=== PATIENT | female | born 1950 | race Caucasian/White ===

== ENCOUNTER 2019-04-29 17:57 | Emergency (ER) | payer MEDICARE, OTHER ==
--- NOTE | 2019-04-29 18:17 | EDM.PDOC ---
ED HPI GENERAL MEDICAL PROBLEM - General Chief Complaint: Upper Extremity Injury/Pain Stated Complaint: RT WRIST INJURY Time Seen by Provider: 04/29/19 18:12 Source of Information: Reports: Patient, Family History Limitations: Reports: No Limitations - History of Present Illness INITIAL COMMENTS - FREE TEXT/NARRATIVE: 68-year-old female presents the ED after tripping and falling outside the shop about 2 hours ago. She states she went to close the door and her flip-flop got stuck in a crack causing her to lose her balance and she fell directly onto the concrete. She missed [address] down. Landed hard on her right elbow and wrist. Pain is getting worse over the last 48 hours and especially in the wrist. She denies hitting her head or hurting her neck. She has a minimal superficial abrasion to her right lateral proximal leg. Tetanus toxoid is up-to- date. Onset: Today Onset Date: 04/29/19 Onset Time: 16:15 Duration: Hour(s): Location: Reports: Upper Extremity, Right (Injury to the right elbow and forearm and wrist.) Quality: Reports: Ache, Throbbing Severity: Moderate (6 out of 10) Improves with: Reports: Rest Worsens with: Reports: Movement Context: Reports: Trauma (Lost her balance and fell with direct blow to the right elbow and wrist.). Denies: Activity, Exercise, Sick Contact Associated Symptoms: Reports: No Other Symptoms Treatments [employer]: Reports: Other (see below) (None.) Right Arm Pain Score (Numeric/FACES): 8 - Related Data Allergies Allergy/AdvReac Type Severity Reaction Status Date / Time amoxicillin Allergy Rash Verified 04/29/19 18:06 Home Meds: Home Meds atorvaSTATin [Lipitor] 20 mg PO BEDTIME 04/29/19 [History] oxyCODONE HCl/Acetaminophen [Percocet 5-325 mg Tablet] 1 - 2 each PO Q4H PRN # 12 tablet 04/29/19 [Rx] Past Medical History Cardiovascular History: Reports: High Cholesterol Musculoskeletal History: Reports: Osteoarthritis Social & Family History - Tobacco Use Smoking Status *Q: Never Smoker - Recreational Drug Use Recreational Drug Use: No - Living Situation & Occupation Living situation: Reports: Occupation: Employed Review of Systems - Review of Systems Review Of Systems: See Below Constitutional: Reports: No Symptoms. Denies: Chills, Diaphoresis, Fever, Weakness Eyes: Reports: Glasses Ears: Reports: No Symptoms Nose: Reports: No Symptoms Mouth/Throat: Reports: No Symptoms Respiratory: Reports: No Symptoms Cardiovascular: Reports: No Symptoms GI/Abdominal: Reports: No Symptoms Genitourinary: Reports: No Symptoms Musculoskeletal: Reports: Joint Pain (Occasionally knees hips low back) Skin: Reports: No Symptoms Neurological: Reports: No Symptoms Psychiatric: Reports: No Symptoms ED EXAM, GENERAL - Physical Exam Exam: See Below Exam Limited By: No Limitations General Appearance: Alert, WD/WN, Mild Distress Head: Atraumatic, Normocephalic Neck: Normal Inspection, Supple, Non-Tender, Full Range of Motion. No: Lymphadenopathy (L), Lymphadenopathy (R) Respiratory/Chest: No Respiratory Distress, Lungs Clear, Normal Breath Sounds, No Accessory Muscle Use, Chest Non-Tender, Other Cardiovascular: Normal Peripheral Pulses (Denies any pain on palpation of her ribs or sternum.), Regular Rate, Rhythm, No Edema, No Gallop, No Murmur, No Rub Extremities: Other (Emanation of the left upper extremity shows no injuries. The right lower extremity shows a superficial abrasion to the lateral proximal leg which will not require any treatment other than topical antibiotic therapy. The right forearm shows swelling particularly over the ulnar aspect of the wrist. She has difficulty making a fist. There are contusions and some swelling of the extensor surface of the forearm. There are 3 fairly large abrasions over the right elbow. She has difficulty pronating supinating at the elbow due to pain in the wrist. None of the wounds are deep enough to require sutures. They are abrasions measuring) Neurological: Alert ( 1-2 cm in diameter), Oriented, CN II-XII Intact, Normal Cognition Psychiatric: Other (A mild degree of pain.) Course - Vital Signs Last Recorded V/S: Last Vital Signs Temp 36.6 C 04/29/19 18:03 Pulse 71 04/29/19 18:03 Resp 16 04/29/19 18:03 BP Pulse Ox 100 04/29/19 18:03 - Orders/Labs/Meds Orders: Active Orders 24 hr Category Date Time Status Forearm 2V Rt [CR] Stat Exams 04/29/19 18:13 Taken Wrist Comp Min 3V Rt [CR] Stat Exams 04/29/19 18:12 Taken - Radiology Interpretation Free Text/Narrative:: 68-year-old female presents to the ED with an acute injury to her right elbow right forearm and right wrist from a fall. This occurred about 2 hours ago outside of a shop. She states her flip-flop got stuck in a crack can concrete surfaces causing her to fall directly on her right elbow and wrist. Any other injuries. States the pain in her wrist is getting worse over the last 2 hours and this what made her come to the hospital. Examination shows swelling over the dorsal aspect of the wrist particularly on the ulnar aspect. There are some superficial abrasions to the extensor surface of the forearm and larger abrasions to the elbow particularly over the olecranon process. Difficulty pronating supinating at the elbow. The humerus appears to be intact as does the shoulder. Plan x-ray of the right forearm and wrist 3 view to be done. - Re-Assessments/Exams Free Text/Narrative Re-Assessment/Exam: 04/29/19 19:00: X-rays of the forearm reveals a very subtle undisplaced fracture through the neck of the radial head. There is very slight elevation of the anterior fat pad. The distal radius and ulna and wrist or carpal bones are normal without fracture. No will be a sling for the next 10 days. Her wounds on her elbows was are superficial abrasions will be cleansed and topical antibiotic be placed on them daily until the scab over. Will prescribe Percocet tabs 5/325 mg 12 tablets for pain relief 1 tablet with ibuprofen 600 mg every 6 hours should suffice for pain management. Advised follow-up with her primary care provider or Dr. Olson in 10 days' time Departure - Departure Time of Disposition: 19:12 Disposition: Home, Self-Care 01 Condition: Fair Clinical Impression: Abrasion of elbow without infection Fracture of radial head, right, closed Qualifiers: Encounter type: initial encounter Fracture alignment: nondisplaced Qualified Code(s): S52.124A - Nondisplaced fracture of head of right radius, initial encounter for closed fracture Contusion of wrist, right Qualifiers: Encounter type: initial encounter Qualified Code(s): S60.211A - Contusion of right wrist, initial encounter - Discharge Information *PRESCRIPTION DRUG MONITORING PROGRAM REVIEWED*: Not Applicable *COPY OF PRESCRIPTION DRUG MONITORING REPORT IN PATIENT GILA: Not Applicable Prescriptions: oxyCODONE HCl/Acetaminophen [Percocet 5-325 mg Tablet] 1 - 2 each PO Q4H PRN # 12 tablet PRN Reason: pain relief. Instructions: Radial Head Fracture, [id number] Referrals: PCP,Not In Area [Primary Care Provider] - Forms: ED Department Discharge Additional Instructions: Evaluation the emergency room today in regards to injuries to the right elbow and wrist that occurred from a fall. There is marked swelling over the dorsal aspect of the right wrist which is soft tissue in origin as x-rays of the carpal bones or wrist bones and the distal radius and ulna are negative for fracture. Our x-rays do show a nondisplaced hairline crack through the radial head at the elbow. Treatment for this is simple sling for the next 10 days and then after this to start to leave it out of the sling and do regain normal range of motion as tolerated. Abrasions to the right elbow should be cleansed daily with soap and water. Showering is okay. Then apply topical antibiotic such as bacitracin or Polysporin to the wounds once or twice daily until they are healed to prevent secondary wound infection. Suggest follow-up with personal care physician or Dr. Olson orthopedic surgeon in 10 days' time for review of radial head fracture. Dr. Olson's office number is [phone]. Expect to the elbow and wrist for one half hour out of every 4 hours today and tomorrow to reduce swelling. Management to be Motrin 600 mg with one tablet of Percocet 5/325 mg every 6 hours as needed for pain relief. Usually pain is much improved within the next 48-72 hours. - My Orders Last 24 Hours: My Active Orders 04/29/19 18:12 Wrist Comp Min 3V Rt [CR] Stat 04/29/19 18:13 Forearm 2V Rt [CR] Stat - Assessment/Plan Last 24 Hours: My Active Orders 04/29/19 18:12 Wrist Comp Min 3V Rt [CR] Stat 04/29/19 18:13 Forearm 2V Rt [CR] Stat
--- NOTE | 2019-04-30 13:57 | CR ---
Right forearm: Two views of the right forearm were obtained. Comparison: No previous forearm study. No fracture or other bony abnormality is seen. Impression: 1. Unremarkable two-view right forearm study. Diagnostic code #1
--- NOTE | 2019-04-30 14:44 | CR ---
Right wrist: Four views of the right wrist were obtained. Comparison: No prior wrist exam. No fracture, dislocation or other bony abnormality is seen. Impression: 1. Nothing acute is appreciated on right wrist exam. Diagnostic code #2
== END 2019-04-29 19:29 | disposition home or self-care (01) ==
LOC: JD.ED 17:57
DX: S52.124A Nondisplaced fracture of head of right radius, initial encounter for closed fracture (principal); S60.211A Contusion of right wrist, initial encounter; S50.311A Abrasion of right elbow, initial encounter; S80.811A Abrasion, right lower leg, initial encounter; M19.90 Unspecified osteoarthritis, unspecified site; Z88.1 Allergy status to other antibiotic agents; W10.9XXA Fall (on) (from) unspecified stairs and steps, initial encounter
CPT/HCPCS: 73090-26-RT; 73090-RT; 73110-26-RT; 73110-RT; 99283-25; 99284